=== PATIENT | male | born 1990 | race Caucasian/White ===

== ENCOUNTER 2017-11-18 09:05 | Observation (INO) | payer OTHER ==
[2017-11-18] MEDS ORDERED: Sodium Chloride 0.9% 2.5 ML Syringe FLUSH PRN (09:43)
[2017-11-18] MEDS ORDERED: Promethazine 25 MG/ML SDV IM PRN (09:43)
[2017-11-18] MEDS ORDERED: HYDROmorphone 2 MG/ML SDV IVPUSH PRN ×2 (09:43→13:19)
[2017-11-18] MEDS ORDERED: Ondansetron 4 MG/2 ML SDV IVPUSH PRN (09:43)
[2017-11-18] MEDS ORDERED: Sodium Chloride 0.9% 10 ML Syringe FLUSH PRN (09:43)
[2017-11-18] MEDS ORDERED: Lactated Ringers 1,000 ML IV SCH (09:45)
[2017-11-18] MEDS ORDERED: Lidocaine 2% Jelly 30 ML Tube ONE (09:48)
--- NOTE | 2017-11-18 09:51 | PCM.HP ---
H&P History of Present Illness - General Date of Service: 11/18/17 Admit Problem/Dx: Admission Diagnosis/Problem Admission Diagnosis/Problem Hemorrhoids History Limitations: Reports: No Limitations - History of Present Illness Initial Comments - Free Text/Narative: Patient is a 27 year old male who presents with acute anal pain. He had a history of constipation as a child, but recently he has experienced looser stools. He states that he feels something "fall out" when he has a BM, but then it would spontaneously reduce. Yesterday he was driving from [place] when they came out and did not go back in. The tissue became swollen and exquisetly painful. He denies fevers, chills, nausea or vomiting, but has no appetite. He denies abdominal pain. He denies melena or hematochezia. His father has ulcerative colitis. He has never had a colonoscopy. He presented to an OSH and was transferred here for further assessment and cares. Rectal Pain Score (Numeric/FACES): 9 - Related Data Allergies/Adverse Reactions: Allergies Allergy/AdvReac Type Severity Reaction Status Date / Time No Known Allergies Allergy Verified 11/18/17 09:09 Home Medications: Home Meds Dextroamphetamine/Amphetamine [Adderall 20 mg Tablet] 20 mg PO TID 11/18/17 [ History] Past Medical History - Past Health History Medical/Surgical History: Denies Medical/Surgical History Psychiatric History: Reports: ADHD - Infectious Disease History Infectious Disease History: Reports: Chicken Pox - Past Surgical History GI Surgical History: Reports: Hernia, Inguinal (Bilateral, as a child) Social & Family History - Family History Family Medical History: Noncontributory - Tobacco Use Smoking Status *Q: Current Every Day Smoker Years of Tobacco use: 3 Packs/Tins Daily: 0.5 - Recreational Drug Use Recreational Drug Use: No H&P Review of Systems - Review of Systems: Review Of Systems: ROS reveals no pertinent complaints other than HPI. Exam - Exam Exam: See Below - Vital Signs Vital Signs: Last Vital Signs Temp 36.8 C 11/18/17 09:06 Pulse 103 H 11/18/17 09:06 Resp 18 11/18/17 09:06 BP 128/84 11/18/17 09:06 Pulse Ox 94 L 11/18/17 09:06 Weight: 117.934 kg - Exam General: Alert, Oriented, Moderate Distress HEENT: Conjunctiva Clear, Posterior Pharynx Clear, Pupils Equal, Pupils Reactive , Other (Mucosa dry ) Neck: Supple Lungs: Clear to Auscultation, Normal Respiratory Effort Cardiovascular: Regular Rate, Regular Rhythm GI/Abdominal Exam: Soft, Non-Tender, No Distention, No Mass (Male) Exam: Normal Inspection Rectal (Males) Exam: Hemorrhoids (Grade 4 hemorrhoids prolapsed and thrombosed ) - Problem List (1) Grade IV internal hemorrhoids SNOMED Code(s): 955160735 ICD Code: K64.3 - FOURTH DEGREE HEMORRHOIDS Status: Acute Current Visit: Yes (2) Internal thrombosed hemorrhoids SNOMED Code(s): 11635573 ICD Code: K64.5 - PERIANAL VENOUS THROMBOSIS Status: Acute Current Visit : Yes Problem List Initiated/Reviewed/Updated: Yes Orders Last 24hrs: Active Orders 24 hr Category Date Time Status Patient Status [ADT] Routine ADT 11/18/17 09:43 Ordered Oxygen Therapy [RC] PRN Care 11/18/17 09:43 Ordered RT Incentive Spirometry [RC] ASDIRECTED Care 11/18/17 09:43 Ordered Vital Signs [RC] PER UNIT ROUTINE Care 11/18/17 09:43 Ordered Nothing Per Oral Diet [DIET] Diet 11/18/17 Breakfast Ordered Acetaminophen/HYDROcodone [[place] 325-5 MG] Med 11/18/17 09:43 Ordered 2 tab PO Q4H PRN HYDROmorphone [Dilaudid] Med 11/18/17 09:43 Ordered 1 mg IVPUSH Q1H PRN Lactated Ringers @ 125 MLS/HR(1000ml) Med 11/18/17 09:45 Ordered Lactated Ringers [Ringers, Lactated] 1,000 ml IV ASDIRECTED Ondansetron [Zofran] Med 11/18/17 09:43 Ordered 4 mg IVPUSH Q6H PRN Polyethylene Glycol 3350 [MiraLAX] Med 11/19/17 09:00 Ordered 17 gm PO DAILY Promethazine [Phenergan] Med 11/18/17 09:43 Ordered 25 mg IM Q6H PRN Sodium Chloride 0.9% [Saline Flush] Med 11/18/17 09:43 Ordered 10 ml FLUSH ASDIRECTED PRN Sodium Chloride 0.9% [Saline Flush] Med 11/18/17 09:43 Ordered 2.5 ml FLUSH ASDIRECTED PRN Peripheral IV Insertion Adult [OM.PC] Urgent Oth 11/18/17 09:43 Ordered Resuscitation Status Routine Resus Stat 11/18/17 09:43 Ordered Assessment/Plan Comment:: He appears to have grade 4 hemorrhoids that have prolapsed and thrombosed. The treatment for this is surgery. We discussed exam under anesthesia and hemorrhoidectomy. I explained the procedure, expected perioperative course and risks including bleeding, infection, or damage to surrounding structures including sphincter damage leading to incontinence. We also discussed the need for fiber therapy, a good bowel regiment, sitz baths and pain control after the procedure. He verbalized understanding and wishes to proceed.
[2017-11-18] MEDS ORDERED: Lactated Ringers 1,000 ML IV ONE (09:54)
[2017-11-18] MEDS ORDERED: Piperacillin/Tazobactam 3.375 GM in Sodium Chloride 0.9% 50 ML IV ONE (09:55)
[2017-11-18] MEDS ORDERED: Bupivacaine 0.5% 30 ML SDV ONE (10:29)
[2017-11-18] MEDS ORDERED: Gelatin Sponge,Absorbable 12-7 mm Sponge TOP ONE (10:30)
[2017-11-18] MEDS: Nicotine 14 MG/24 Hr Patch TRDERM SCH (10:48)
--- NOTE | 2017-11-18 11:09 | PCM.PREANE ---
Preanesthetic Assessment - Anesthesia/Transfusion/Family Hx Anesthesia History: Prior Anesthesia Without Reaction Family History of Anesthesia Reaction: No Transfusion History: No Prior Transfusion(s) - Review of Systems General: No Symptoms Pulmonary: No Symptoms Cardiovascular: No Symptoms Neurological: No Symptoms Other: Reports: None - Physical Assessment NPO Status Date: 11/17/17 O2 Sat by Pulse Oximetry: 94 Respiratory Rate: 16 Vital Signs: Last Vital Signs Temp 36.9 C 11/18/17 10:35 Pulse 90 11/18/17 10:35 Resp 16 11/18/17 10:35 BP 140/80 11/18/17 10:35 Pulse Ox 98 11/18/17 10:49 Height: 1.88 m Weight: 117.934 kg ASA Class: 2 Mental Status: Alert & Oriented x3 Airway Class: Mallampati = 1 Dentition: Reports: Normal Dentition ROM/Head Extension: Full Lungs: Clear to Auscultation, Normal Respiratory Effort Cardiovascular: Regular Rate, Regular Rhythm - Allergies Allergies/Adverse Reactions: Allergies Allergy/AdvReac Type Severity Reaction Status Date / Time No Known Allergies Allergy Verified 11/18/17 09:09 - Anesthesia Plan Pre-Op Medication Ordered: None - Acknowledgements Anesthesia Type Planned: General Anesthesia Pt an Appropriate Candidate for the Planned Anesthesia: Yes Alternatives and Risks of Anesthesia Discussed w Pt/Guardian: Yes Pt/Guardian Understands and Agrees with Anesthesia Plan: Yes Additional Comments: PMH: ADHD, meds adderal plan: GET if prone, GA LMA if lithotomy PreAnesthesia Questionnaire - Past Health History Medical/Surgical History: Denies Medical/Surgical History Neurological History: Reports: Migraines Psychiatric History: Reports: ADHD - Infectious Disease History Infectious Disease History: Reports: Chicken Pox - Past Surgical History GI Surgical History: Reports: Hernia, Inguinal - SUBSTANCE USE Smoking Status *Q: Current Every Day Smoker Tobacco Use Within Last Twelve Months: Cigarettes Recreational Drug Use History: No - HOME MEDS Home Medications: Home Meds Dextroamphetamine/Amphetamine [Adderall 20 mg Tablet] 20 mg PO TID 11/18/17 [ History] - CURRENT (IN HOUSE) MEDS Current Meds: Current Medications Hydrocodone Bitart/Acetaminophen ([place] 325-5 Mg) 2 tab PO Q4H PRN PRN Reason: Pain (moderate 4-6) Hydromorphone HCl (Dilaudid) 1 mg IVPUSH Q1H PRN PRN Reason: Pain (severe 7-10) Last Admin: 11/18/17 10:48 Dose: 1 mg Lactated Ringer's (Ringers, Lactated) 1,000 mls @ 125 mls/hr IV ASDIRECTED [facility] Nicotine (Habitrol) 14 mg TRDERM DAILY [facility] Last Admin: 11/18/17 10:48 Dose: 14 mg Ondansetron HCl (Zofran) 4 mg IVPUSH Q6H PRN PRN Reason: Nausea/Vomiting Polyethylene Glycol (Miralax) 17 gm PO DAILY [facility] Promethazine HCl (Phenergan) 25 mg IM Q6H PRN PRN Reason: Nausea Sodium Chloride (Saline Flush) 10 ml FLUSH ASDIRECTED PRN PRN Reason: Keep Vein Open Sodium Chloride (Saline Flush) 2.5 ml FLUSH ASDIRECTED PRN PRN Reason: Keep Vein Open Discontinued Medications Bupivacaine HCl (Marcaine 0.5%) Confirm Administered Dose 30 ml .ROUTE .STK-MED ONE Stop: 11/18/17 10:30 Gelatin (Gelfoam 12-7 Mm) Confirm Administered Dose 1 each TOP .STK-MED ONE Stop: 11/18/17 10:31 Gelatin (Gelfoam Size 100) Confirm Administered Dose 1 each TOP .STK-MED ONE Stop: 11/18/17 10:31 Lactated Ringer's (Ringers, Lactated) 1,000 mls @ 1,000 mls/hr IV .BOLUS ONE Stop: 11/18/17 10:53 Last Admin: 11/18/17 10:48 Dose: 1,000 mls/hr Piperacillin Sod/Tazobactam (Sod 3.375 gm/ Sodium Chloride) 50 mls @ 100 mls/ hr IV ONETIME ONE Stop: 11/18/17 10:24
[2017-11-18] MEDS ORDERED: Rocuronium 10 MG/ML 10 ML Syringe ONE (11:32)
[2017-11-18] MEDS ORDERED: Ondansetron 4 MG/2 ML SDV ONE (11:32)
[2017-11-18] MEDS ORDERED: Lidocaine 2% 5 ML SDV ONE (11:32)
[2017-11-18] MEDS ORDERED: Propofol 200 MG/20 ML SDV ONE (11:33)
[2017-11-18] MEDS ORDERED: Midazolam 1 MG/ML 2 ML SDV ONE (11:33)
[2017-11-18] MEDS ORDERED: fentaNYL 250 MCG/5 ML SDV ONE (11:33)
[2017-11-18] MEDS ORDERED: Succinylcholine 200 MG/10 ML MDV ONE (12:22)
[2017-11-18] MEDS ORDERED: Dexamethasone 4 MG/ML 5 ML MDV ONE (12:22)
[2017-11-18] MEDS ORDERED: fentaNYL 100 MCG/2 ML SDV IVPUSH PRN (12:33)
[2017-11-18] MEDS ORDERED: fentaNYL 100 MCG/2 ML SDV ONE (12:36)
[2017-11-18] MEDS ORDERED: Ketorolac 30 MG/ML SDV ONE (12:44)
--- NOTE | 2017-11-18 12:54 | PCM.OPNOTE ---
- General Post-Op/Procedure Note Date of Surgery/Procedure: 11/18/17 Operative Procedure(s): Exam under anesthesia, 2 column hemorrhoidectomy Findings: Thrombosed prolapsed left lateral and right posterior internal hemorrhoids Pre Op Diagnosis: Internal thrombosed hemorrhoids Post-Op Diagnosis: same Anesthesia Technique: General ET Tube Primary Surgeon: Uzma Quintero EBL in mLs: 10 Condition: Stable
[2017-11-18] MEDS ORDERED: Lidocaine 5% Oint 35.44 GM Tube TOP PRN (12:57)
--- NOTE | 2017-11-18 14:10 | OR ---
SURGEON: MARIN GALAVIZ MD DATE OF PROCEDURE: 11/18/2017 PREOPERATIVE DIAGNOSIS: Grade 4 prolapsed and thrombosed internal hemorrhoids. POSTOPERATIVE DIAGNOSIS: Grade 4 prolapsed and thrombosed internal hemorrhoids. PROCEDURE PERFORMED: Hemorrhoidectomy x2 columns. ANESTHESIA: General endotracheal anesthesia. FLUIDS: See anesthesia record. ESTIMATED BLOOD LOSS: 10 mL. FINDINGS: Left lateral and right posterior thrombosed grade 4 internal hemorrhoids. COMPLICATIONS: None. INDICATIONS: The patient is a 27-year-old male with past medical history significant for constipation with recent change in his bowel habits. Along with this, he has noticed prolapsing tissue during bowel movements. These usually spontaneously reduced, but today they did not. They became swollen and exquisitely tender. On physical exam, he appears to have prolapsed and thrombosed internal hemorrhoids. We discussed the pathophysiology of hemorrhoidal disease. I explained to him that if that I would take him to the operating room for an exam under anesthesia and hemorrhoidectomy. We discussed the procedure, expected perioperative course, expected postoperative care as well as the risks including bleeding, infection, or damage to surrounding structures, which could lead to incontinence. The patient verbalized understanding and wishes to proceed. PROCEDURE IN DETAIL: The patient was brought into the operating room, on the operating room cart. A time-out was completed verifying the patient's name, age, date of , allergies, and procedure to be performed. General endotracheal anesthesia was induced. The patient was then placed on the operating room table in a prone fabien-knife position. All bony prominences were appropriately padded. A digital rectal exam was performed. This confirmed prolapsed thrombosed internal hemorrhoids. A bivalve proctoscope was inserted into the anus. The patient had thrombosed left lateral and right posterior hemorrhoidal columns. The largest of these was left lateral. I grasped the thrombosed hemorrhoid with a clamp and elevated off the surrounding tissue. A needlepoint cautery was used to excise the thrombosed tissue off sharply. A 2-0 chromic suture was then used to close the mucosal defect. Within the anal canal, a running locking stitch was made. This was then transitioned to a simple stitch along the anoderm. The stitch was then back stitched onto itself, so that it could be tied at the apex. This allowed the knot on the chromic suture to be within the anal canal. I then turned my attention to the right posterior hemorrhoidal column. This was grasped with a clamp and elevated. Needlepoint cautery and a scalpel were used to excise the thrombosed hemorrhoidal tissue. A 2-0 chromic suture was then used to close the mucosa. This was closed in similar fashion to my last stitch. I then irrigated the anal canal. Mucosa distally appeared normal. Surgicel was then placed in the anal canal and pressure held for approximately 5 minutes. The Surgicel was then removed and I inspected my suture line. They appeared to be hemostatic. A small piece of Surgifoam was left in the anal canal to provide hemostasis after the case. I then anesthetized the anoderm circumferentially using 0.5% Marcaine plain. Nerve blocks were done on either side of the anus. 4 x 4 fluffs and mesh panties were then placed on the patient. He was placed supine on the OR cart and extubated. He was taken to the PACU in stable condition. SANDOR NUNEZ /[id number] ANA
--- NOTE | 2017-11-18 15:27 | PCM.POSTAN ---
POST ANESTHESIA ASSESSMENT - MENTAL STATUS Mental Status: Alert, Oriented - RESPIRATORY Respiratory Status: Respiratory Rate WNL, Airway Patent, O2 Saturation Stable, Supplemental Oxygen (per nc) - CARDIOVASCULAR CV Status: Pulse Rate WNL, Blood Pressure Stable - GASTROINTESTINAL GI Status: No Symptoms - PAIN Pain Score: 3 - POST OP HYDRATION Hydration Status: Adequate & Stable - OBSERVATIONS Free Text/Narrative:: Pt stable for discharge back to phase II on Med/Surg
[2017-11-19] MEDS: Acetaminophen/HYDROcodone 325-5 MG Tab PO PRN ×2 (04:19→08:24)
--- NOTE | 2017-11-19 06:16 | PCM.DCSUM1 ---
Discharge Summary - Hospital Course Free Text/Narrative:: Patient presented with Grade 4 hemorrhoids that had prolapsed and thrombosed. He was taken to the OR for hemorrhoidectomy. He did well post-operatively. After his first meal he became nauseated. This improved with medication. His pain was well controlled with norco. He ate this morning and he had no nausea. Vitals are stable. He is urinating. He can be discharged home. - Discharge Data Discharge Date: 11/19/17 Discharge Disposition: Home, Self-Care 01 Condition: Stable - Discharge Diagnosis/Problem(s) (1) Grade IV internal hemorrhoids SNOMED Code(s): 428823757 ICD Code: K64.3 - FOURTH DEGREE HEMORRHOIDS Status: Acute Current Visit: Yes (2) Internal thrombosed hemorrhoids SNOMED Code(s): 15769879 ICD Code: K64.5 - PERIANAL VENOUS THROMBOSIS Status: Acute Current Visit : Yes - Patient Summary/Data Operative Procedure(s) Performed: Exam under anesthesia, 2 column hemorrhoidectomy - Patient Instructions Diet: Regular Diet as Tolerated, Drink 8-10+ Glasses/Day, No Alcoholic Beverages Activity: No Lifting Over 20 Pounds (for two weeks ), Rest and Relax Today Driving: Do Not Drive (while on narcotics ) Showering/Bathing: May Shower Notify Provider of: Fever, Increased Pain, Swelling and Redness, Drainage Other/Special Instructions: -Take fiber supplement daily. -Use miralax daily to produce soft bowel movement every 1-2 days. If having diarrhea, stop using miralax. -Lidocaine cream to anus every 2 hours as needed for pain. -[place] for severe pain - Discharge Plan Prescriptions/Med Rec: Calcium Polycarbophil [Fibercon] 1,250 mg PO DAILY 30 Days #1 tablet Lidocaine 5% 35.44 gm .XX Q2H PRN #1 tube PRN Reason: Pain Polyethylene Glycol 3350 [MiraLAX] 17 gm PO DAILY 14 Days #1 bottle Home Medications: Home Meds Dextroamphetamine/Amphetamine [Adderall 20 mg Tablet] 20 mg PO TID 11/18/17 [ History] Calcium Polycarbophil [Fibercon] 1,250 mg PO DAILY 30 Days #1 tablet 11/19/17 [ Rx] Lidocaine 5% 35.44 gm .XX Q2H PRN #1 tube 11/19/17 [Rx] Polyethylene Glycol 3350 [MiraLAX] 17 gm PO DAILY 14 Days #1 bottle 11/19/17 [Rx ] Forms: ED Department Discharge Referrals: PCP,None [Primary Care Provider] - - General Info Functional Status: Reports: Pain Controlled, Tolerating Diet, Ambulating, Urinating - Review of Systems General: Reports: No Symptoms Pulmonary: Reports: No Symptoms Cardiovascular: Reports: No Symptoms Gastrointestinal: Reports: No Symptoms - Patient Data Vitals - Most Recent: Last Vital Signs Temp 36.6 C 11/19/17 04:00 Pulse 93 11/19/17 04:00 Resp 18 11/19/17 04:00 BP 116/63 11/19/17 04:00 Pulse Ox 93 L 11/19/17 04:00 Weight - Most Recent: 117.934 kg I&O - Last 24 hours: Intake & Output 11/18/17 11/18/17 11/19/17 14:59 22:59 06:59 Intake Total 1900 2107 480 Output Total 1150 Balance 1900 2107 -670 Med Orders - Current: Current Medications Hydrocodone Bitart/Acetaminophen ([place] 325-5 Mg) 2 tab PO Q4H PRN PRN Reason: Pain (moderate 4-6) Last Admin: 11/19/17 04:19 Dose: 2 tab Calcium Polycarbophil (Fibercon) 1,250 mg PO DAILY [facility] Fentanyl (Sublimaze) 50 mcg IVPUSH SEECOMMENT PRN PRN Reason: Pain (moderate 4-6) Hydromorphone HCl (Dilaudid) 1 mg IVPUSH Q1H PRN PRN Reason: Pain (severe 7-10) Last Admin: 11/18/17 10:48 Dose: 1 mg Hydromorphone HCl (Dilaudid) 2 mg IVPUSH ONETIME PRN PRN Reason: Pain (moderate 4-6) Lactated Ringer's (Ringers, Lactated) 1,000 mls @ 125 mls/hr IV ASDIRECTED [facility] Last Admin: 11/18/17 14:54 Dose: 125 mls/hr Nicotine (Habitrol) 14 mg TRDERM DAILY [facility] Last Admin: 11/18/17 10:48 Dose: 14 mg Ondansetron HCl (Zofran) 4 mg IVPUSH Q6H PRN PRN Reason: Nausea/Vomiting Last Admin: 11/18/17 19:14 Dose: 4 mg Polyethylene Glycol (Miralax) 17 gm PO DAILY [facility] Promethazine HCl (Phenergan) 25 mg IM Q6H PRN PRN Reason: Nausea Sodium Chloride (Saline Flush) 10 ml FLUSH ASDIRECTED PRN PRN Reason: Keep Vein Open Sodium Chloride (Saline Flush) 2.5 ml FLUSH ASDIRECTED PRN PRN Reason: Keep Vein Open Discontinued Medications Bupivacaine HCl (Marcaine 0.5%) Confirm Administered Dose 30 ml .ROUTE .STK-MED ONE Stop: 11/18/17 10:30 Dexamethasone (Dexamethasone) Confirm Administered Dose 20 mg .ROUTE .STK-MED ONE Stop: 11/18/17 12:23 Fentanyl (Sublimaze) Confirm Administered Dose 250 mcg .ROUTE .STK-MED ONE Stop: 11/18/17 11:34 Fentanyl (Sublimaze) Confirm Administered Dose 100 mcg .ROUTE .STK-MED ONE Stop: 11/18/17 12:37 Gelatin (Gelfoam 12-7 Mm) Confirm Administered Dose 1 each TOP .STK-MED ONE Stop: 11/18/17 10:31 Gelatin (Gelfoam Size 100) Confirm Administered Dose 1 each TOP .STK-MED ONE Stop: 11/18/17 10:31 Lactated Ringer's (Ringers, Lactated) 1,000 mls @ 1,000 mls/hr IV .BOLUS ONE Stop: 11/18/17 10:53 Last Admin: 11/18/17 10:48 Dose: 1,000 mls/hr Piperacillin Sod/Tazobactam (Sod 3.375 gm/ Sodium Chloride) 50 mls @ 100 mls/ hr IV ONETIME ONE Stop: 11/18/17 10:24 Last Admin: 11/18/17 16:40 Dose: Not Given Acetaminophen (Ofirmev) Confirm Administered Dose 100 mls @ as directed IV .STK- MED ONE Stop: 11/18/17 12:20 Ketorolac Tromethamine (Toradol) Confirm Administered Dose 30 mg .ROUTE .STK- MED ONE Stop: 11/18/17 12:45 Lidocaine (Xylocaine-Mpf 2%) Confirm Administered Dose 5 ml .ROUTE .STK-MED ONE Stop: 11/18/17 11:33 Lidocaine HCl (Lidocaine 5%) 2 gm TOP Q2H PRN PRN Reason: pain Lidocaine HCl (Xylocaine 2% Jelly) 30 ml .XX .STK-MED ONE Stop: 11/18/17 09:49 Midazolam HCl (Versed 1 Mg/Ml) Confirm Administered Dose 2 mg .ROUTE .STK-MED ONE Stop: 11/18/17 11:34 Ondansetron HCl (Zofran) Confirm Administered Dose 4 mg .ROUTE .STK-MED ONE Stop: 11/18/17 11:33 Propofol (Diprivan 20 Ml) Confirm Administered Dose 200 mg .ROUTE .STK-MED ONE Stop: 11/18/17 11:34 Rocuronium [place] (Zemuron) Confirm Administered Dose 100 mg .ROUTE .STK-MED ONE Stop: 11/18/17 11:33 Succinylcholine Chloride (Quelicin) Confirm Administered Dose 200 mg .ROUTE .STK -MED ONE Stop: 11/18/17 12:23 - Exam General: Reports: Alert, Oriented HEENT: Reports: Pupils Equal Lungs: Reports: Normal Respiratory Effort Cardiovascular: Reports: Regular Rate GI/Abdominal Exam: Soft, Non-Tender, No Distention, No Mass
[2017-11-19] MEDS ORDERED: HYDROmorphone 1 MG/ML Syringe IVPUSH PRN (07:30)
[2017-11-19] MEDS: Nicotine 14 MG/24 Hr Patch TRDERM SCH (08:25)
[2017-11-19] MEDS ORDERED: Calcium Polycarbophil 625 MG Tab PO SCH (09:00)
[2017-11-19] MEDS ORDERED: Polyethylene Glycol 3350 Powder 17 GM Packet PO SCH (09:00)
--- NOTE | 2017-11-19 10:05 | PCM48HPAN ---
Post Anesthesia Note - EVALUATION WITHIN 48HRS OF ANESTHETIC Vital Signs in Normal Range: Yes Patient Participated in Evaluation: Yes Respiratory Function Stable: Yes Airway Patent: Yes Cardiovascular Function Stable: Yes Hydration Status Stable: Yes Pain Control Satisfactory: Yes Nausea and Vomiting Control Satisfactory: Yes Mental Status Recovered: Yes Resp Rate: 16 - COMMENTS/OBSERVATIONS Free Text/Narrative:: Getting ready for discharge. Denies any problems.
== END 2017-11-19 09:30 | disposition home or self-care (01) ==
LOC: MW.ED 09:05 → MW.MS 09:47
PROVIDERS: ADMIT Surgery; ATTEND Surgery
DX: K64.3 Fourth degree hemorrhoids (principal); F17.210 Nicotine dependence, cigarettes, uncomplicated
CPT/HCPCS: 46260; 99285; A9270; J0330; J1100; J1170; J1885; J2250; J2405; J3010; J7120; 00902; 88304; J2704

== ENCOUNTER 2017-11-22 06:23 | Day surgery (SDC) | payer OTHER ==
[2017-11-22] MEDS ORDERED: Lactated Ringers 1,000 ML IV SCH (06:45)
[2017-11-22] MEDS ORDERED: Lidocaine 2% 5 ML SDV ONE (07:12)
[2017-11-22] MEDS ORDERED: Propofol 200 MG/20 ML SDV ONE ×2 (07:12→07:19)
[2017-11-22] MEDS ORDERED: fentaNYL 100 MCG/2 ML SDV ONE (07:13)
[2017-11-22] MEDS ORDERED: Midazolam 1 MG/ML 2 ML SDV ONE (07:13)
[2017-11-22] MEDS ORDERED: fentaNYL 250 MCG/5 ML SDV ONE (07:13)
[2017-11-22] MEDS ORDERED: Scopolamine 1.5 MG Transdermal Patch TRDERM PRN (07:19)
[2017-11-22] MEDS ORDERED: Bupivacaine 0.5% 30 ML SDV ONE (07:22)
--- NOTE | 2017-11-22 07:22 | PCM.PREANE ---
Preanesthetic Assessment - Anesthesia/Transfusion/Family Hx Anesthesia History: Prior Anesthesia Without Reaction Family History of Anesthesia Reaction: No Transfusion History: No Prior Transfusion(s) Intubation History: Unknown - Review of Systems General: No Symptoms Pulmonary: No Symptoms Cardiovascular: No Symptoms Gastrointestinal: No Symptoms Neurological: No Symptoms Other: Reports: None - Physical Assessment NPO Status Date: 11/21/17 NPO Status Time: 20:00 O2 Sat by Pulse Oximetry: 96 Respiratory Rate: 16 Vital Signs: Last Vital Signs Temp 36.6 C 11/22/17 07:00 Pulse 80 11/22/17 07:00 Resp 16 11/22/17 07:00 BP 133/74 11/22/17 07:00 Pulse Ox 96 11/22/17 07:00 Height: 1.88 m Weight: 126.552 kg ASA Class: 2 Mental Status: Alert & Oriented x3 Airway Class: Mallampati = 2 Dentition: Reports: Normal Dentition Thyro-Mental Finger Breadths: 3 Mouth Opening Finger Breadths: 2 ROM/Head Extension: Full Lungs: Clear to Auscultation, Normal Respiratory Effort Cardiovascular: Regular Rate, Regular Rhythm - Allergies Allergies/Adverse Reactions: Allergies Allergy/AdvReac Type Severity Reaction Status Date / Time No Known Allergies Allergy Verified 11/21/17 15:25 - Blood Blood Available: No - Anesthesia Plan Pre-Op Medication Ordered: None - Acknowledgements Anesthesia Type Planned: General Anesthesia Pt an Appropriate Candidate for the Planned Anesthesia: Yes Alternatives and Risks of Anesthesia Discussed w Pt/Guardian: Yes Pt/Guardian Understands and Agrees with Anesthesia Plan: Yes PreAnesthesia Questionnaire - Past Health History Medical/Surgical History: Denies Medical/Surgical History Gastrointestinal History: Reports: Hemorrhoids Neurological History: Reports: Migraines Psychiatric History: Reports: ADHD Endocrine/Metabolic History: Reports: Obesity/BMI 30+ - Infectious Disease History Infectious Disease History: Reports: Chicken Pox - Past Surgical History GI Surgical History: Reports: Hernia, Inguinal Other GI Surgeries/Procedures: hernia x2 as a child, recent hemorrhoidectomy ( saturday) - SUBSTANCE USE Smoking Status *Q: Current Every Day Smoker (1/2 ppd) Tobacco Use Within Last Twelve Months: Cigarettes Recreational Drug Use History: No - HOME MEDS Home Medications: Home Meds Dextroamphetamine/Amphetamine [Adderall 20 mg Tablet] 20 mg PO TID 06/04/18 [ History] Calcium Polycarbophil [Fibercon] 1,250 mg PO DAILY 30 Days #1 tablet 11/19/17 [ Rx] Lidocaine 5% 35.44 gm .XX Q2H PRN #1 tube 11/19/17 [Rx] Polyethylene Glycol 3350 [MiraLAX] 17 gm PO DAILY 14 Days #1 bottle 11/19/17 [Rx ] - CURRENT (IN HOUSE) MEDS Current Meds: Current Medications Lactated Ringer's (Ringers, Lactated) 1,000 mls @ 125 mls/hr IV ASDIRECTED [facility] Scopolamine (Transderm-Scop) 1.5 mg TRDERM Q72H PRN PRN Reason: Nausea Discontinued Medications Fentanyl (Sublimaze) Confirm Administered Dose 100 mcg .ROUTE .STK-MED ONE Stop: 11/22/17 07:14 Fentanyl (Sublimaze) Confirm Administered Dose 250 mcg .ROUTE .STK-MED ONE Stop: 11/22/17 07:14 Lidocaine (Xylocaine-Mpf 2%) Confirm Administered Dose 10 ml .ROUTE .STK-MED ONE Stop: 11/22/17 07:13 Midazolam HCl (Versed 1 Mg/Ml) Confirm Administered Dose 2 mg .ROUTE .STK-MED ONE Stop: 11/22/17 07:14 Propofol (Diprivan 20 Ml) Confirm Administered Dose 400 mg .ROUTE .STK-MED ONE Stop: 11/22/17 07:13
[2017-11-22] MEDS ORDERED: Neostigmine Methylsulfate 1 MG/ML 5 ML Syringe ONE (07:25)
[2017-11-22] MEDS ORDERED: Rocuronium 10 MG/ML 10 ML Syringe ONE (07:25)
[2017-11-22] MEDS ORDERED: Ondansetron 4 MG/2 ML SDV ONE (07:25)
[2017-11-22] MEDS ORDERED: Succinylcholine 200 MG/10 ML MDV ONE (07:25)
[2017-11-22] MEDS ORDERED: Glycopyrrolate 0.2 MG/ML SDV ONE (07:25)
[2017-11-22] MEDS ORDERED: Gelatin Sponge,Absorbable 12-7 mm Sponge TOP ONE (07:26)
[2017-11-22] MEDS ORDERED: ePHEDrine 50 MG/ML SDV ONE (08:02)
--- NOTE | 2017-11-22 09:02 | PCM.OPNOTE ---
- General Post-Op/Procedure Note Date of Surgery/Procedure: 11/22/17 Operative Procedure(s): Hemorrhoidectomy Findings: Right anterior thrombosed and prolapsed hemorrhoidal column. Thrombosed residual left lateral hemorrhoid. Pre Op Diagnosis: Grade IV prolpased and thrombosed hemorrhoid Post-Op Diagnosis: same Anesthesia Technique: General ET Tube Primary Surgeon: Uzma Quintero Fluid Replacement, Intraop: 800 EBL in mLs: 10 Condition: Good
[2017-11-22] MEDS ORDERED: fentaNYL 100 MCG/2 ML SDV IVPUSH PRN (09:05)
[2017-11-22] MEDS ORDERED: Acetaminophen/oxyCODONE 325-10 MG Tab PO PRN (09:50)
--- NOTE | 2017-11-22 10:54 | PCM48HPAN ---
Post Anesthesia Note - EVALUATION WITHIN 48HRS OF ANESTHETIC Vital Signs in Normal Range: Yes Patient Participated in Evaluation: Yes Respiratory Function Stable: Yes Airway Patent: Yes Cardiovascular Function Stable: Yes Hydration Status Stable: Yes Pain Control Satisfactory: Yes Nausea and Vomiting Control Satisfactory: Yes Mental Status Recovered: Yes Resp Rate: 15 - COMMENTS/OBSERVATIONS Free Text/Narrative:: no anesthesia problems
--- NOTE | 2017-11-22 14:12 | OR ---
SURGEON: MARIN GALAVIZ MD DATE OF PROCEDURE: 11/22/2017 PREOPERATIVE DIAGNOSIS: Grade 4 prolapsed and thrombosed internal hemorrhoids. POSTOPERATIVE DIAGNOSIS: Grade 4 prolapsed and thrombosed internal hemorrhoids. PROCEDURE PERFORMED: Hemorrhoidectomy. ANESTHESIA: General endotracheal anesthesia. FLUIDS: 800 mL of crystalloid. ESTIMATED BLOOD LOSS: 10 mL. PATHOLOGY SPECIMEN: Hemorrhoids. FINDINGS: Right anterior prolapsed and thrombosed hemorrhoidal column. Residual hemorrhoidal tissue along the left lateral edge that was thrombosed as well. COMPLICATIONS: None. INDICATIONS: The patient is a 27-year-old male who underwent a two-column hemorrhoidectomy on Saturday for grade 4 prolapsed and thrombosed internal hemorrhoids. At the time of this procedure, the right anterior column of hemorrhoids did not appear enlarged or involved. These were left in place. The patient did well for the first several days, but then developed swelling and pain along the anterior aspect of his anus. He came to see me in clinic yesterday. His suture line appeared healthy, but the right anterior column of hemorrhoids had prolapsed and thrombosed. A decision was made to proceed back to the operating room to excise this remaining hemorrhoidal tissue. The patient and I discussed the procedure; expected perioperative course; and risks including bleeding, infection, or damage to the surrounding structures, leading to alteration/incontinence. The patient verbalized understanding and wishes to proceed. PROCEDURE IN DETAIL: The patient was brought into the OR on the OR cart. A time-out was completed verifying the patient's name, age, date of , allergies, and procedure to be performed. General endotracheal anesthesia was induced. The patient was then placed in a prone fabien-knife position on the operating room table. All bony prominences were appropriately padded and protected. The buttocks were then prepped and draped in the usual standard fashion. Exam of the anoderm and a digital rectal exam was confirmed a thrombosed right anterior hemorrhoidal column. The patient was also noted to have a residual area of hemorrhoidal tissue just posterior to the left lateral suture line that was thrombosed and swollen. The anoderm was mildly ecchymotic but there was no evidence of warmth or erythema. A proctoscope was inserted in the anus. The sutures lines all appeared to be well healing with no evidence of breakdown or infection. I first addressed the right anterior hemorrhoids. I grasped the redundant tissue with a clamp and elevated off the surrounding tissues. A needlepoint cautery was then used to excise this hemorrhoidal column sharply in a josé antonio shaped fashion. A small amount of cautery was used to achieve hemostasis. The anal canal mucosa was then closed with a running locking 2-0 chromic stitch. This was transitioned to a simple stitch on the anoderm. This was then sutured back on itself and tied to the apex of the incision. The residual hemorrhoidal tissue along the left posterior aspect of the anus was then addressed. I decided to remove this as well. It was elevated with a clamp and excised using needlepoint cautery. This tissue mainly on the anoderm, so I used a 2-0 chromic to close it with a simple running stitch. I then reinforced the left lateral suture line with a running 2-0 chromic stitch given its close proximity to the newly excised area. I then reinspected the operative field. It appeared to be hemostatic. A 0.5% Marcaine plain was then injected circumferentially around the anoderm, and I performed a nerve block on either side of the anus. Fluffs and mesh underwear were then placed. The patient was placed back on the OR cart in supine position and extubated. He was transferred to the PACU in stable condition. SANDOR NUNEZ /[id number]
== END 2017-11-22 11:00 | disposition home or self-care (01) ==
LOC: MW.SDS 06:23
PROVIDERS: ATTEND Surgery
DX: K64.3 Fourth degree hemorrhoids (principal); E66.9 Obesity, unspecified; F17.210 Nicotine dependence, cigarettes, uncomplicated; Z68.30 Body mass index [BMI] 30.0-30.9, adult; Z79.899 Other long term (current) drug therapy
CPT/HCPCS: 46255; A9270; J0330; J2250; J2405; J3010; J7120; J2704